=== PATIENT | male | born 1980 | race Two or more races ===

== ENCOUNTER 2019-10-10 14:13 | Outpatient (CLI) | payer OTHER | END 2019-10-10 14:31 | disposition home or self-care (01) | LOC: TOM 14:13 | PROVIDERS: ATTEND Surgery | DX: K57.32 Diverticulitis of large intestine without perforation or abscess without bleeding (principal) ==

== ENCOUNTER 2019-10-11 20:27 | Inpatient (IN) | payer OTHER ==
[~2019-10-11] VITALS: Ht 177.8 cm; Wt 80.3 kg
[2019-10-14] MEDS ORDERED: AMOX1TAB5 PO (09:50)
[2019-10-14] MEDS ORDERED: INTESTINEX680 M1 PO (09:50)
[2019-10-14] MEDS ORDERED: PRILOSEC OTC20 MG PO (09:50)
== END 2019-10-14 11:32 | disposition home or self-care (01) | DRG 392 ==
LOC: ER 20:27 → SURH 21:02 → SURG 21:02 → SEC-K 21:39 → SURH 10-12 08:07
PROVIDERS: ADMIT Surgery; ATTEND Surgery
DX: K57.32 Diverticulitis of large intestine without perforation or abscess without bleeding (principal); R10.32 Left lower quadrant pain; Z20.828 Contact with and (suspected) exposure to other viral communicable diseases

== ENCOUNTER 2020-07-01 08:21 | Emergency (ER) | payer OTHER ==
[~2020-07-01] VITALS: Ht 177.8 cm; Wt 93.0 kg
[~2020-07-01 08:21] MED LIST: AMOX1TAB5 PO; INTESTINEX680 M1 PO; PRILOSEC OTC20 MG PO
== END 2020-07-01 11:41 | disposition home or self-care (01) ==
LOC: ER 08:21
DX: R07.89 Other chest pain (principal); M94.0 Chondrocostal junction syndrome [Tietze]; I10 Essential (primary) hypertension